=== PATIENT | female | born 1985 | race Hispanic/Latino ===

== ENCOUNTER 2022-10-10 10:33 | Outpatient (CLI) | payer MEDICAID | END 2022-10-10 10:34 | disposition home or self-care (01) | LOC: BICULT 10:33 | PROVIDERS: ATTEND Advanced Practice Midwife | DX: O09.522 Supervision of elderly multigravida, second trimester (principal); Z3A.28 28 weeks gestation of pregnancy | CPT/HCPCS: 76805 ==